=== PATIENT | male | born 1955 | race Two or more races ===

== ENCOUNTER 2019-11-02 07:16 | Outpatient (CLI) | payer OTHER ==
[~2019-11-02 07:16] MED LIST: CLOBETASOL PROP15 GM TP; DESPEC-DM TABL1 EACH PO; ORPH100T PO; TORADOL60 MG IM; TUSSI-PRES LIQ118 ML PO; VOLTAREM 75 MG PO
== END 2019-11-02 07:36 | disposition home or self-care (01) ==
LOC: LAB 07:16
DX: E03.8 Other specified hypothyroidism (principal); E78.49 Other hyperlipidemia; C61 Malignant neoplasm of prostate; D53.8 Other specified nutritional anemias

== ENCOUNTER 2020-10-30 06:44 | Outpatient (CLI) | payer OTHER | END 2020-10-30 07:03 | disposition home or self-care (01) | LOC: LAB 06:44 | PROVIDERS: ATTEND Internal Medicine | DX: E88.81 Metabolic syndrome and other insulin resistance (principal) ==

== ENCOUNTER → 2021-02-09 06:19 | Outpatient (CLI) | payer OTHER | END | disposition home or self-care (01) | LOC: LAB 06:19 | DX: R97.20 Elevated prostate specific antigen [PSA] (principal) ==

== ENCOUNTER 2021-11-17 08:00 | Outpatient (CLI) | payer OTHER | END 2021-11-17 08:30 | disposition home or self-care (01) | LOC: PPH VACUNA 08:00 | PROVIDERS: ATTEND Emergency Medicine Pediatric Emergency Medicine | DX: Z23 Encounter for immunization (principal) ==

== ENCOUNTER 2025-05-09 09:56 | Outpatient (CLI) | payer OTHER | END 2025-05-09 10:04 | disposition home or self-care (01) | LOC: RAD 09:56 | PROVIDERS: ATTEND Internal Medicine Rheumatology | DX: M77.31 Calcaneal spur, right foot (principal); M77.32 Calcaneal spur, left foot; M15.0 Primary generalized (osteo)arthritis ==